=== PATIENT | female | born 1985 | race Asian ===

== ENCOUNTER 2017-08-13 21:44 | Emergency (ER) | payer MEDICAID, SELFPAY ==
[2017-08-13 22:06] LABS: Bilirubin Negative (Negative); Blood, Urine Large (Negative); Clarity TURBID (Clear); Glucose, Urine (Dipstick) Negative (Negative); Leukocyte Negative (Negative); Nitrite Negative (Negative); Protein, Urine (Dipstick) Negative (Neg-Trace); Specific Gravity, Urine 1.021 (1.002-1.036); Urobilinogen 0.2 mg/dL (0.2-1.0); pH, Urine 7.5 (5.0-9.0)
[2017-08-13 22:08] LABS: Pregnancy Test - Urine (BHCG) Negative (Negative); Pregu Control Background? CLEAR/WHITE (CLR/WHITE); Pregu Control Bar Appear? YES (CONTROL BAR); Specific Gravity 1.021 (1.002-1.036)
[2017-08-13 22:09] LABS: Bacteria/HPF Rare-Few HPF (None Seen); Hyaline Casts/LPF 0-3 HYALINE CAST LPF (0-3 Hyaline); Pathc Cast-AUWi Flag 0.13 (0-2.49); Squamous Epithelial 0-3 HPF (0-3); WBC/HPF 0-3 HPF (0-3)
--- NOTE | 2017-08-13 23:57 | ULT ---
PELVIC ULTRASOUND: Technique: Transabdominal and endovaginal ultrasound of the pelvis performed. History: Vaginal bleeding. Left lower quadrant and left pelvic pain. Positive HCG. FINDINGS: No evidence of intrauterine gestational sac. The endometrial stripe is upper normal, measured at appr oximately 10 mm. Both ovaries appear unremarkable with normal appearing follicles. Color doppler and spectral analysis demonstrates blood flow to both ovaries. No free fluid is seen. IMPRESSION: No evidence of intrauterine identified. Recommend close follow up with serial HCG levels. F ollow up pelvic ultrasound as indicated. Ectopic is not excluded in this patient with posit idris test and no intrauterine gestation identified. POS: [facility]
== END 2017-08-13 23:26 | disposition home or self-care (01) ==
LOC: ERS 21:44
DX: O03.9 Complete or unspecified spontaneous abortion without complication (principal)
CPT/HCPCS: 36415; 76856; 81003; 81015; 81025; 84702; 87086